=== PATIENT | female | born 1995 | race African-American/Black ===

== ENCOUNTER 2018-05-05 10:50 | Observation (INO) ==
[2018-05-05] MEDS ORDERED: HYDROmorphone 2 MG/1 ML VIAL IV ONE (12:47)
[2018-05-05] MEDS ORDERED: ONDANSETRON 4 MG/2 ML VIAL IV PRN (13:01)
[2018-05-05] MEDS ORDERED: IBUPROFEN 100 MG/5 ML UDCUP PO PRN (13:01)
[2018-05-05] MEDS ORDERED: HYDROcod/ACETAMIN 7.5-325 MG/15 ML UDCUP PO PRN (13:01)
[2018-05-05] MEDS: SODIUM CHLORIDE 0.9% 1,000 ML IV SCH (13:19)
[2018-05-05] MEDS: AMOXICILLIN/CLAV 875 MG TABLET PO SCH (14:16)
[2018-05-05] MEDS: DEXAMETHASONE 4 MG/1 ML VIAL IV SCH ×2 (14:16→22:25)
[2018-05-05] MEDS: CLINDAMYCIN INJ 300 MG in PREMIX 1 EACH IV SCH ×2 (14:19→22:25)
[2018-05-06] MEDS: SODIUM CHLORIDE 0.9% 1,000 ML IV SCH (02:10)
[2018-05-06] MEDS: AMOXICILLIN/CLAV 875 MG TABLET PO SCH ×2 (02:10→13:43)
[2018-05-06] MEDS: DEXAMETHASONE 4 MG/1 ML VIAL IV SCH ×2 (06:07→13:41)
[2018-05-06] MEDS: CLINDAMYCIN INJ 300 MG in PREMIX 1 EACH IV SCH (06:08)
[2018-05-06] MEDS ORDERED: LACTOBACILLUS ACIDOPHILUS/BULGARICUS CHEW TABLET PO SCH (09:00)
[2018-05-06] MEDS ORDERED: PANTOPRAZOLE 40 MG TABLET PO SCH (09:00)
[2018-05-06 11:47] VITALS: BP 102/67
== END 2018-05-06 14:21 | disposition home or self-care (01) ==
LOC: N.2E
PROVIDERS: ADMIT Otolaryngology; ATTEND Otolaryngology